=== PATIENT | male | born 1955 | race Caucasian/White ===

== ENCOUNTER 2021-04-24 09:29 | Outpatient (CLI) | payer OTHER, SELFPAY ==
--- NOTE | ~2021-04-24 | CT_ITS ---
EXAMINATION: CT abdomen pelvis w con DATE: 04/24/2021 10:10 INDICATION: Prostate cancer TECHNIQUE: Computed tomography (CT) of the abdomen and pelvis was performed with 100 cc Omnipaque 350 intravenous contrast. The dose-length product was 1049.96 mGy-cm. Automated exposure control and ite rative reconstruction technique were employed. COMPARISON: No prior studies for comparison. . FINDINGS: Lung bases are unremarkable. Heart size normal. No significant pleural or pericardial effus ion. There are bilateral fat-containing inguinal hernias. Prostate gland mildly enlarged. There is an enlarged left internal iliac chain lymph node measuring 2 cm, image 151. The liver, spleen, pancreas, adrenal glands are unremarkable. There is a nonobstructing 4 mm right re nal stone. There are bilateral renal cysts. Gallbladder is present. Nonobstructive bowel gas pattern. Colonic diverticulosis without evidence for diverticulitis. There are sclerotic lesions of the sacru m which are nonspecific. There is a sclerotic lesion of L2 IMPRESSION: 1. Enlarged left internal iliac chain lymph node measuring 2 cm, suspicious for metastatic disease. 2: Sclerotic lesions of L2 and the sacrum which are nonspecific and may be related to benign bone is lands, although metastatic disease is not excluded. Correlation with bone scan recommended. Reviewed, dictated and finalized at location B. ONAL BUSINESS DEVELOPMENT MANAGER IMPRESSION: 1. Enlarged left internal iliac chain lymph node measuring 2 cm, suspicious for metastatic disease. 2: Sclerotic lesions of L2 and the sacrum which are nonspecific and may be rel ated to benign bone islands, although metastatic disease is not excluded. Corre lation with bone scan recommended.
--- NOTE | ~2021-04-24 | NM_ITS ---
EXAMINATION: NM bone scan whole body DATE: 04/24/2021 13:02 INDICATION: Prostate cancer. TECHNIQUE: 24 mCi Tc-99m HDP was administered intravenously. Delayed whole-body scintigrams were obt ained. COMPARISON: CT abdomen and pelvis 04/24/2021 FINDINGS: There is increased activity in proximal left humerus without radiographic comparison. There is increased activity in left ilium correlating with a sclerotic lesion by CT. There is increased ac tivity in left superior pubic ramus correlating with a subtle sclerotic lesion by CT. There is increa sed activity in right ischial tuberosity correlating with a subtle sclerotic lesion by CT. There is i ncreased activity at L3-L4 correlating with degenerative disc disease by CT. The CT demonstrates betty gn bone islands in L2 vertebral body and left sacrum. There is joint-centered increased activity in t he knees, ankles, and left foot without radiographic comparison, likely osteoarthritis. IMPRESSION: 1. Increased activity in right ischial tuberosity, left superior pubic ramus, and left ilium correlat ing with subtle sclerotic lesions by CT, consistent with metastatic disease. 2. Increased activity in surgical neck of proximal left humerus without radiographic comparison. This finding may be an age-indeterminate fracture or metastatic disease. Correlation with left shoulder r adiographs is recommended. Reviewed, dictated and finalized at location A. [place] FIELD MERCHANDISER IMPRESSION: 1. Increased activity in right ischial tuberosity, left superior pubic ramus, a nd left ilium correlating with subtle sclerotic lesions by CT, consistent with metastatic disease. 2. Increased activity in surgical neck of proximal left humerus without radiogr aphic comparison. This finding may be an age-indeterminate fracture or metastat ic disease. Correlation with left shoulder radiographs is recommended.
--- NOTE | ~2021-04-24 | XR_ITS ---
XR shoulder LT min 2V DATE: 04/24/2021 17:01 INDICATION: Abnormal uptake at the proximal left humerus on 04/24/2021 radionuclide bone scan Prostate cancer TECHNIQUE: 4 views of left shoulder COMPARISON: None FINDINGS: Normal alignment at the acromioclavicular and glenohumeral joints. No fracture or dislocati on, periosteal reaction or bone destruction is evident. Subtle groundglass increased density of the p roximal humeral shaft may be very subtle metastatic disease secondary to prostate cancer. IMPRESSION: No fracture; very subtle groundglass increased density of proximal humeral shaft may be m etastatic disease Reviewed, dictated and finalized at location A. [employer] NEEDS IMPRESSION: No fracture; very subtle groundglass increased density of proximal humeral shaft may be metastatic disease
[2021-04-24 10:04] LABS: Estimated Glomerular Filt Rate 47
== END 2021-04-24 09:30 | disposition home or self-care (01) ==
PROVIDERS: PCP Family Medicine; Visit Provider Urology
DX: C61 Malignant neoplasm of prostate (principal)
CPT/HCPCS: 73030; 74177; 78306; A9561; Q9967

== ENCOUNTER 2021-06-10 06:38 | Outpatient (CLI) | payer OTHER, SELFPAY ==
--- NOTE | ~2021-06-10 | MR_ITS ---
. EXAMINATION: MR pelvis wo/w con DATE: 06/10/2021 08:20 INDICATION: Malignant neoplasm of the prostate TECHNIQUE: Magnetic resonance imaging (MRI) of the pelvis was performed without and with 18 mL Multih ance intravenous contrast. Fullfield sequences of the pelvis included axial and coronal T2-weighted S S FSE, axial, sagittal and coronal 2D FIESTA, axial 2D FIESTA FS, axial SSFSE-IR JOHNNA, axial dual-echo T1-weighted FSPGR, axial and coronal T1 weighted LAVA, 3D axial T2 Cube, axial diffusion-weighted SE with apparent diffusion coefficient (ADC) maps. Postcontrast sequences included a time course axial T1-weighted LAVA and sagittal and coronal T1-weighted LAVA. COMPARISON: CT dated 04/24/2021 FINDINGS: Prostatomegaly measuring 4.3 x 3.2 cm. There is a collection of T2 hyperintense nonenhancing hydrogel positioned between the posterior margin of the prostate in the anterior wall of the rectum. The shayy ection measures 5.5 cm craniocaudally and up to 2.3 x 1.2 cm in maximal transaxial dimensions. Bladde r is normal. Visualized portion of the bowels and lower poles of the bilateral kidneys are unremarkab le. No free fluid in the pelvis. Small bilateral fat-containing inguinal hernias. No pathologically e nlarged pelvic or inguinal lymphadenopathy. Moderate right-sided predominant disc height loss with mi ld degenerative endplate changes at L4-L5. IMPRESSION: 1. 5.5 x 2.3 x 1.2 cm collection of hydrogel between the anterior wall of the rectum and the mildly e nlarged prostate which measures 4.3 x 3.2 cm. No evident metastatic disease. Reviewed, dictated and finalized at location A. IMPRESSION: 1. 5.5 x 2.3 x 1.2 cm collection of hydrogel between the anterior wall of the r ectum and the mildly enlarged prostate which measures 4.3 x 3.2 cm. No evident metastatic disease.
[2021-06-10 07:16] LABS: Estimated Glomerular Filt Rate 43
== END 2021-06-10 06:39 | disposition home or self-care (01) ==
PROVIDERS: PCP Family Medicine; Visit Provider Radiology Radiation Oncology
DX: C61 Malignant neoplasm of prostate (principal)
CPT/HCPCS: 72197; A9577

== ENCOUNTER 2021-10-22 08:32 | Outpatient (CLI) | payer MEDICARE, OTHER, SELFPAY ==
--- NOTE | ~2021-10-22 | DEXA_ITS ---
Bone Density Report Name: CYNDI BOJORQUEZ Age: 66 Sex: Male Ethnicity: White Date of : 1955 Indication: parental hip fracture; cancer; Referring Provider: UNRULY CLARKE Study: Bone densitometry was performed. Exam Date: October 22, 2021 Accession number: [id number] Bone Density: Region BMD T-score Z-score Classification AP Spine(L1, L2, L3) 1.249 1.6 2.4 Normal Femoral Neck (Left) 1.072 1.0 2.1 Normal Total Hip (Left) 1.235 1.3 1.9 Normal Femoral Neck (Right) 1.005 0.6 1.6 Normal Total Hip (Right) 1.146 0.8 1.3 Normal Total Hip Mean 1.190 1.1 1.6 Normal World Health Organization criteria for BMD impression classify patients as: Normal (T-score at or above -1.0), Osteopenia (T-score between -1.0 and -2.5), or Osteoporosis (T-score at or below -2.5). 10-year Fracture Risk: FRAX not reported because: All T-scores for Spine Total, Hip Total, Femoral Neck at or above -1.0 Clinical Information Provided by Patient: Parent has had a hip fracture Has the following medical conditions: Cancer Patient maximum height was 69.5 Drinks caffeinated beverages Impression: The patient has normal bone mass. The patient has risk factors, including: parental hip fracture. Discussion: BONE DENSITY IS ABOVE THE MINIMUM DESIRABLE LEVEL AT ALL SKELETAL SITES TESTED. This patient?s bone mineral density is above the minimum desirable level (T-score -1.0 or better) at all sites measured. The patient should follow a healthful lifestyle (good nutrition with adequate calcium and vitamin D, and appropriate weight-bearing exercise). Follow-Up: Consider repeating this study in 5 years or sooner if there is some new clinical indication. Reported by: HENRY on 10/22/2021 8:55:00 AM. Reviewed, dictated and finalized at location A. [facility]
== END 2021-10-22 08:33 | disposition home or self-care (01) ==
LOC: ANHIMG 08:34
PROVIDERS: PCP Family Medicine; Visit Provider Nurse Practitioner Adult Health
DX: C61 Malignant neoplasm of prostate (principal)
CPT/HCPCS: 77080

== ENCOUNTER 2024-04-06 14:38 | Outpatient (CLI) | payer MEDICARE, SELFPAY ==
--- NOTE | ~2024-04-06 | DEXA_ITS ---
Bone Density Report Name: CYNDI BOJORQUEZ Age: 68 Sex: Male Ethnicity: White Date of : 1955 Indication: parental hip fracture; cancer; Referring Provider: ERNST NELSON Study: Bone densitometry was performed. Exam Date: April 06, 2024 Accession number: [id number] Bone Density: Region BMD T-score Z-score Classification AP Spine(L1, L2, L3) 1.247 1.6 2.5 Normal Femoral Neck (Left) 1.028 0.7 1.9 Normal Total Hip (Left) 1.178 1.0 1.6 Normal Femoral Neck (Right) 0.957 0.2 1.4 Normal Total Hip (Right) 1.119 0.6 1.2 Normal Total Hip Mean 1.148 0.8 1.4 Normal World Health Organization criteria for BMD impression classify patients as: Normal (T-score at or above -1.0), Osteopenia (T-score between -1.0 and -2.5), or Osteoporosis (T-score at or below -2.5). 10-year Fracture Risk: FRAX not reported because: All T-scores for Spine Total, Hip Total, Femoral Neck at or above -1.0 Previous Exams: Region Exam Age BMD T-score BMD Change BMD Change Date g/cm2 vs Baseline vs Previous AP Spine (L1-L3) 04/06/2024 68 1.247 1.6 -0.002 (-0.2%) -0.002 (-0.2%) 10/22/2021 66 1.249 1.6 Total Hip(Left) 04/06/2024 68 1.178 1.0 -0.057 (-4.6%) -0.057 (-4.6%) 10/22/2021 66 1.235 1.3 Total Hip(Right) 04/06/2024 68 1.119 0.6 -0.027 (-2.4%) -0.027 (-2.4%) 10/22/2021 66 1.146 0.8 *Denotes significance at 95% confidence level, LSC for AP Spine = 0.022 g/cm2, LSC for Total Hip = 0.027 g/cm2 Clinical Information Provided by Patient: Parent has had a hip fracture Has used the following medications: Vitamin D, Calcium Has the following medical conditions: Cancer Patient maximum height was 69 Drinks caffeinated beverages Impression: The patient has normal bone mass. The patient has risk factors, including: parental hip fracture. The BMD for the Total Hip(Left) decreased, changing by -4.6% since the last DXA exam. The BMD for the Total Hip(Right) decreased, changing by -2.4% since the last DXA exam. Discussion: BONE DENSITY IS ABOVE THE MINIMUM DESIRABLE LEVEL AT ALL SKELETAL SITES TESTED. This patient?s bone mineral density is above the minimum desirable level (T-score -1.0 or better) at all sites measured. The patient should follow a healthful lifestyle (good nutrition with adequate calcium and vitamin D, and appropriate weight-bearing exercise). Follow-Up: Consider repeating this study in 3 to 4 years to reassess this patient's status, or sooner if there is some new clinical indication. Reported by: LUIZ on 04/06/2024 3:17:00 PM. Reviewed, dictated and finalized at location ALuis [facility]
== END 2024-04-06 14:39 | disposition home or self-care (01) ==
PROVIDERS: PCP Family Medicine; Visit Provider Urology
DX: M81.8 Other osteoporosis without current pathological fracture (principal)
CPT/HCPCS: 77080

== ENCOUNTER 2025-03-14 08:32 | Outpatient (CLI) | payer MEDICARE, SELFPAY ==
--- NOTE | ~2025-03-14 | XR_ITS ---
EXAMINATION: XR knee RT min 4V, 03/14/2025 8:37 INSTRUMENT TECHNOLOGIST HISTORY: M25.561 - Pain in right knee COMPARISON: No comparisons available. Findings: No acute fracture or malalignment. Moderate to severe tricompartmental degenerative changes with small effusion Soft tissues unremarkable. Impression: No acute fracture or malalignment. Reviewed, dictated and finalized at location P. RUMENT TECHNOLOGIST Impression: No acute fracture or malalignment.
--- NOTE | ~2025-03-14 | XR_ITS ---
EXAMINATION: XR knee LT min 4V, 03/14/2025 8:37 QUENCHING MACHINE OPERATOR HISTORY: M25.562 - Pain in left knee COMPARISON: No comparisons available. Findings: No acute fracture or malalignment. Moderate to severe tricompartmental degenerative changes with small effusion Soft tissues unremarkable. Impression: No acute fracture or malalignment. Reviewed, dictated and finalized at location P. CHING MACHINE OPERATOR Impression: No acute fracture or malalignment.
== END 2025-03-14 08:33 | disposition home or self-care (01) ==
PROVIDERS: PCP Family Medicine; Visit Provider Orthopaedic Surgery
DX: M25.562 Pain in left knee (principal); M25.561 Pain in right knee
CPT/HCPCS: 73564